=== PATIENT | female | born 1970 | race Caucasian/White ===

== ENCOUNTER 2020-03-16 11:48 | Emergency (ER) | payer OTHER ==
[2020-03-16] MEDS ORDERED: HYDROCODONE/ACETAMINOPHEN 10-325 MG TABLET PO ONE (12:06)
[2020-03-16] MEDS ORDERED: ONDANSETRON HCL 8 MG TABLET PO ONE (12:06)
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
--- NOTE | 2020-03-16 13:52 | RADIOLOGY REPORT (SQ) ---
EXAM DESCRIPTION: KNEE RIGHT 4 VIEWS IMAGES COMPLETED DATE/TIME: 03/16/2020 1:34 pm REASON FOR STUDY: [place] the [place] from [place], +pain COMPARISON: None. NUMBER OF VIEWS: Four views. TECHNIQUE: AP, lateral, and both oblique radiographic images acquired of the right knee. LIMITATIONS: None. FINDINGS: MINERALIZATION: Normal. BONES: No acute fracture or dislocation. No worrisome bone lesions. JOINT: No effusion. SOFT TISSUES: Multiple radiopaque foreign bodies overlie the soft tissues presumably on the skin. Cl inical correlation is needed. OTHER: No other significant finding. IMPRESSION: No acute fracture or dislocation. Multiple radiopaque foreign bodies overlie the leg an d proximal calf as described above. TECHNICAL DOCUMENTATION: JOB ID: [id number] 2010 [employer]- All Rights Reserved Reading location - IP/workstation name: [email or web address]
[2020-03-16] MEDS ORDERED: HYDROCODONE/ACETAMINOPHEN 5-325 MG (6 TAB/ER DISP) PO PRN (14:02)
[2020-03-16 14:36] VITALS: BP 121/69
== END 2020-03-16 14:43 | disposition home or self-care (01) ==
LOC: ER 11:48
DX: M25.561 Pain in right knee (principal); W18.39XA Other fall on same level, initial encounter; Y92.832 Beach as the place of occurrence of the external cause
CPT/HCPCS: 99283; 73564; S0119